=== PATIENT | male | born 1935 | race Caucasian/White ===

== ENCOUNTER 2020-07-16 09:41 | Inpatient (IN) | payer MEDICARE ==
[~2020-07-16] VITALS: Ht 167.6 cm; Wt 63.3 kg
[~2020-07-16 09:41] MED LIST: LIQUID MAGNESI400 MG PO; LISINOPRIL20 MG PO; VICODIN 500 MG-1 TAB PO; VITAMIN B1250 MCG PO
--- NOTE | 2020-07-16 09:45 | NUR ---
EKG COMPLETED AND GIVEN TO DR BOGGS. EKG MACHINE WOULD NOT TRANSMIT EKG. TOÑA VÁZQUEZ WAS LEFT A VOICEMAIL ABOUT MACHINE ISSUE
[2020-07-16 09:54] VITALS: BP 124/42
--- NOTE | 2020-07-16 10:23 | NUR ---
PT HAS X3 WRIST BANDS ON AND REFUSES TO TAKE OLD ONES OFF. ONE WRIST BAND IS FROM .
[2020-07-16 10:30] LABS: ACT PARTIAL THROMBO TIME 27.9 SECONDS (20.0-32.1)
[2020-07-16 10:37] LABS: ALBUMIN 3.9 gm/dl (3.1-4.5); ALKALINE PHOSPHATASE 64 U/L (45-117); BUN 18 mg/dl (7-24); CHLORIDE 108 mmol/L (98-107); CREATININE 0.86 mg/dL (0.70-1.30); LIPASE 130 U/L (73-393); POTASSIUM 4.1 mmol/L (3.5-5.1); SGOT/AST 13 IU/L (3-35); SGPT/ALT 11 U/L (12-78); SODIUM 140 mmol/L (136-145); TOTAL PROTEIN 6.7 gm/dL (6.4-8.2)
[2020-07-16 10:40] LABS: TROPONIN I < 0.015 ng/ml (<0.045)
[2020-07-16 10:45] LABS: BASO # 0.1 10*3/uL (0.0-0.1); BASO % 1.4 % (0.0-1.0); EOS # 0.1 10*3/uL (0.0-0.4); EOS % 2.1 % (1.0-4.0); HEMATOCRIT 36.2 % (42.0-52.0); LYMPH % 17.8 % (27.0-41.0); MEAN CELL VOLUME 89.6 fl (80.0-94.0); MEAN CORPUSCULAR HGB CONC 32.3 g/dl (33.0-37.0); MEAN PLATELET VOLUME 10.2 fl (9.6-12.3); MONO # 0.4 10*3/uL (0.1-1.0); MONO % 7.4 % (3.0-9.0); NEUT # 3.9 10*3/uL (2.3-7.9); NEUT % 69.4 % (47.0-73.0); PLATELET COUNT AUTOMATED 183 10*3/uL (130-400); RED BLOOD COUNT 4.04 10*6/uL (4.50-5.90); WHITE BLOOD COUNT 5.7 10*3/uL (4.8-10.8)
[2020-07-16 11:27] VITALS: BP 119/53; BP 130/40
[2020-07-16 12:00] VITALS: BP 123/60
--- NOTE | 2020-07-16 12:15 | NUR ---
A 84, admitted to , under the services of DURAN Acevedo DO with a diagnosis of COPD EXACERBATION. Chief complaint is COPD EXACERBATION. Patient arrived via bed from ER. Monitor applied. Initial assessment completed. Vital signs taken and recorded. DURAN ACEVEDO DO notified of admission to the unit. Orders received. See assessment for past medical history, medications and allergies. Patient and/or family oriented to unit. [facility]. Clothing/patient valuable form completed. URIEL SMITH
[2020-07-16] MEDS ORDERED: ASPIRIN ADULT L81 M2 PO (12:20)
[2020-07-16] MEDS ORDERED: VENT7GM INH (12:20)
--- NOTE | 2020-07-16 13:30 | NUR ---
SHANE CRENSHAW IN TO SEE PATIENT AND MADE AWARE THAT PATIENT TAKES NO HOME MEDS
[2020-07-16 16:00] VITALS: BP 125/60
[2020-07-16 20:00] VITALS: BP 108/68
[2020-07-17 00:06] VITALS: BP 93/68
--- NOTE | 2020-07-17 01:10 | NUR ---
PT ASLEEP IN BED. NO S/S OF DISTRESS NOTED. WILL MONITOR. CALL LIGHT IN REACH.
[2020-07-17 06:52] LABS: HEMATOCRIT 30.5 % (42.0-52.0); MEAN CORPUSCULAR HGB 29.3 pg (27.0-31.0); MEAN CORPUSCULAR HGB CONC 32.1 g/dl (33.0-37.0); MEAN PLATELET VOLUME 10.8 fl (9.6-12.3); PLATELET COUNT AUTOMATED 181 10*3/uL (130-400); RED BLOOD COUNT 3.35 10*6/uL (4.50-5.90); WHITE BLOOD COUNT 7.5 10*3/uL (4.8-10.8)
[2020-07-17 07:21] LABS: CHLORIDE 105 mmol/L (98-107); POTASSIUM 3.9 mmol/L (3.5-5.1); SODIUM 135 mmol/L (136-145)
[2020-07-17 07:36] LABS: ALBUMIN 3.3 gm/dl (3.1-4.5); ALKALINE PHOSPHATASE 55 U/L (45-117); BUN 23 mg/dl (7-24); CHOLESTEROL 131 mg/dL (<200); CREATININE 0.89 mg/dL (0.70-1.30); FREE T4 0.87 ng/dl (0.76-1.46); HDL CHOLESTEROL 53 mg/dl (40-60); LDL CHOLESTEROL 69 mg/dL (9-159); SGOT/AST 7 IU/L (3-35); SGPT/ALT 9 U/L (12-78); THYROID STIM HORMONE (HS) 0.379 uIU/ml (0.358-4.75); TOTAL PROTEIN 5.7 gm/dL (6.4-8.2); TRIGLYCERIDES 44 mg/dl (<150); VLDL CHOLESTEROL 9 mg/dL (6-40)
[2020-07-17 07:45] LABS: BURR CELLS FEW; PLATELET SUFFICIENCY NORMAL (NORMAL); TOTAL CELLS COUNTED 100 #CELLS
[2020-07-17 08:00] VITALS: BP 137/84
[2020-07-17 08:24] LABS: VITAMIN D, 25-HYDROXY 24.2 ng/mL (30-100)
--- NOTE | 2020-07-17 09:00 | NUR ---
Manager Architectural in to talk to patient. Patient states lives at home with alone. There are no steps in the home. Physician: none at present [facility]acy[facility] Home health services: none Patient's level of ADLs: MINIMAL ASSIST Patient has working utilities: all working DME: [employer] Follow-up physician's appointment after d/c: will be made by hospitalist nurse director upon discharge Does patient want to access PORTAL?: no Discharge plan discussed with patient, he states he lives at the [facility] in [place], he uses one crutch for ambulation, is independent in adls, drives, he states he doesn't have any oxygen at home, no VNA, discussed with him a short term alf for 5 days of rehab and 24 hour care prior to returning home, he declined, stated he could take care of himself at home, also discussed with him VNA and educated him on the services they provide, he also declined this, case mangement will follow for home needs. RADHA CYR
[2020-07-17 11:56] VITALS: BP 113/65
--- NOTE | 2020-07-17 12:56 | NUR ---
DR. KRUEGER'S OFFICE NOTIFIED OF CONSULT.
[2020-07-17 16:00] VITALS: BP 105/57
--- NOTE | 2020-07-17 19:30 | NUR ---
PT AWAKE IN BED. DENIES ANY NEEDS AT THIS TIME. WILL MONITOR. CALL LIGHT IN REACH.
[2020-07-17 20:00] VITALS: BP 107/52
[2020-07-18] VITALS: BP 113/66
--- NOTE | 2020-07-18 02:03 | NUR ---
PT ASLEEP IN BED. NO S/S OF DISTRESS NOTED. WILL MONITOR. CALL LIGHT IN REACH.
[2020-07-18 06:02] LABS: RETICULOCYTE % 4.1 % (0.50-2.50)
[2020-07-18 06:27] LABS: IRON 55 ug/dL (65-175); TOTAL IRON BINDING CAPACITY 257 ug/dl (250-450)
[2020-07-18 08:00] VITALS: BP 112/64
[2020-07-18 08:39] LABS: HEMATOCRIT 29.4 % (42.0-52.0); MEAN CELL VOLUME 89.9 fl (80.0-94.0); MEAN CORPUSCULAR HGB 29.7 pg (27.0-31.0); MEAN PLATELET VOLUME 10.8 fl (9.6-12.3); NUCLEATED RED BLOOD CELL 0.2 % (0.0-0.0); PLATELET COUNT AUTOMATED 191 10*3/uL (130-400); RED BLOOD COUNT 3.27 10*6/uL (4.50-5.90); WHITE BLOOD COUNT 12.5 10*3/uL (4.8-10.8)
--- NOTE | 2020-07-18 09:00 | NUR ---
case management visits with patient, discussed with him a short term jail stay for 5 days of rehab and 24 hour care, he was agreeable to this short term, given choice of facilities he chose [facility], sr. merchandise planner will make referral to [facility], patient will to complete a 3 night stay and has a covid swab, case management/sr. merchandise planner will follow
--- NOTE | 2020-07-18 10:22 | NUR ---
Patient is requesting a referral to [facility]. Contacted [facility] and faxed initial referral. Waiting on therapy evalulations and covid is pending. Waiting on review/acceptance.
--- NOTE | 2020-07-18 10:40 | NUR ---
Occupational Therapy evaluation completed on four with full evaluation to follow. Recommend occupational therapy per plan of care and SNF upon discharge. Thank you for this referral. Shea Harmon OTR/L
--- NOTE | 2020-07-18 11:08 | NUR ---
[facility] is stating patient will be accepted there and during his 14 day quarantine he will be allowed outside to smoke 3 times per day. Waiting on PT marty
[2020-07-18 11:15] LABS: BURR CELLS MODERATE; PLATELET SUFFICIENCY NORMAL (NORMAL); TOTAL CELLS COUNTED 100 #CELLS
--- NOTE | 2020-07-18 12:11 | NUR ---
PHYSICAL THERAPY Physical Therapy evaluation completed on 4th floor with full evaluation to follow. Recommend physical therapy per plan of care and SNF upon discharge. Thank you for this referral. Jose Hernadez SPT Risa Casanova PT
--- NOTE | 2020-07-18 12:30 | NUR ---
PATIENT C/O CHEST PAIN WHILE EATING, PATIENT WILL NOT STOP EATING FOR VITALS. VSS.
--- NOTE | 2020-07-18 12:48 | NUR ---
MEDICATED WITH TYLENOL PER ORDER AND REQUEST.
--- NOTE | 2020-07-18 14:00 | NUR ---
PATIENT STATED HE IS IN SEVERE PAIN HE NEEDS A PILL. SHANE NOTIFIED.
--- NOTE | 2020-07-18 14:19 | NUR ---
NITRO GIVEN PER ORDER.
--- NOTE | 2020-07-18 14:30 | NUR ---
GRETEL UNGER. SHANE HAS COME UP AND NEW ORDER FOR PROTONIX TO BE STARTED.
[2020-07-18 16:00] VITALS: BP 111/79
[2020-07-18 20:00] VITALS: BP 115/55
--- NOTE | 2020-07-18 20:00 | NUR ---
PATIENT VOICES NO COMPLAINTS AT THIS TIME. RESTING IN BED. RESPIRATIONS EASY, NON LABORED. VSS. BED IN LOWEST POSITION, CALL LIGHT WITHIN REACH. WILL CONTINUE TO MONITOR.
[2020-07-19] VITALS: BP 129/59
--- NOTE | 2020-07-19 04:00 | NUR ---
PATIENT SLEEPING, NO SIGNS OF DISTRESS. RESPIRATIONS EASY, NON LABORED. WILL CONTINUE TO MONITOR.
--- NOTE | 2020-07-19 07:34 | NUR ---
PT WORKING WITH PHYSICAL THERAPY AND AMBULATING THROUGHOUT ROOM WITH THEIR ASSISTANCE AT THIS TIME.
--- NOTE | 2020-07-19 07:40 | NUR ---
PHYSICAL THERAPY Patient seen this am 1;1 for therapy visit and was restng supine in bed upon therapist arrival. Patient identified by name / and recorded resting SpO2 97%, HR 98 bpm prior to transfering supine to sit EOB with MIN A. Patient needed a minute or so to collect himself, then completed sit to stand transfer, CGA x 1 with use of wh walker standing support. Patient was very talkative and needed v/c to improve focus on task in completing all treatment this session. Patient ambulated CGA, wh walker, 20'x 1 to bathroom then additional 50'x 2, demonstrating "slouched" posture, decreased stride and cautious step sequence during all 90/180 turns. Patient also able to take 3-4 backward steps without LOB and returned to EOB sit with mild fatigue. Patient recorded SpO2 97%, HR 81 bpm following gait ex and remained EOB sit as his Nurse arrived. Will continue per POC as tolerated, total treatment time 18 minutes. Keon Mccarthy, PULP BEATER
--- NOTE | 2020-07-19 07:55 | NUR ---
OT NOTE Pt laying supine in bed with head elevated agreeable to 30 minute OT session. Identified by name and date of with no complaints. Transfer supine to EOB SBA. Pt was able to bend at waist to fix hospital socks at CGA. Sitting balance good-. Sit-stand CGA with w/w for UB support and safety. Functional mobility from EOB to Bathroom CGA with w/w. Transferring on and off commode CGA with grab bar and w/w. Clothing management and hygiene both CGA with w/w. Functional mobility from bathroom to hallway CGA with w/w for safety. Functional mobility from hallway back to EOB CGA with w/w for safety. Pt was able to tolerate approx 5 minutes of activity without fatigue. While standing EOB pts balance was challenged by weight shifting and crossing midline to reach for ADL products at CGA and w/w. Standing balance F-. Pt completed BUE exercises at EOB with towel in all planes using minimal resistance due to stiff joints X10 and HAMILTON for command follow. Throughout OT session pt required max verbal cues for slowing down during Functional mobility due to being impulsive, command follow, and attention to task. Pt was left in bed with alarm active and call light in reach. Continue d/c recommneded SNF. ZARA Schneider/TRIPP Steward/Jada
[2020-07-19 08:00] VITALS: BP 115/56
[2020-07-19 08:24] LABS: BASO % 0.1 % (0.0-1.0); HEMATOCRIT 32.7 % (42.0-52.0); LYMPH # 0.5 10*3/uL (1.3-4.4); LYMPH % 3.4 % (27.0-41.0); MEAN CELL VOLUME 90.3 fl (80.0-94.0); MEAN CORPUSCULAR HGB 29.6 pg (27.0-31.0); MEAN CORPUSCULAR HGB CONC 32.7 g/dl (33.0-37.0); MEAN PLATELET VOLUME 10.1 fl (9.6-12.3); MONO # 0.7 10*3/uL (0.1-1.0); MONO % 4.8 % (3.0-9.0); NEUT # 12.8 10*3/uL (2.3-7.9); NUCLEATED RED BLOOD CELL 0.1 % (0.0-0.0); PLATELET COUNT AUTOMATED 197 10*3/uL (130-400); RED BLOOD COUNT 3.62 10*6/uL (4.50-5.90); RED CELL DISTRI WIDTH 19.5 % (0-14.5); WHITE BLOOD COUNT 14.2 10*3/uL (4.8-10.8)
[2020-07-19 08:37] LABS: BUN 19 mg/dl (7-24); CHLORIDE 106 mmol/L (98-107); CREATININE 0.83 mg/dL (0.70-1.30); POTASSIUM 4.7 mmol/L (3.5-5.1); SODIUM 137 mmol/L (136-145)
--- NOTE | 2020-07-19 10:39 | NUR ---
PT GIVEN TYLENOL 650 PO AT THIS TIME FOR C/O BACK PAIN. WILL MONITOR FOR EFFECTIVENESS. CALL LIGHT IN REACH.
--- NOTE | 2020-07-19 11:20 | NUR ---
Faxed updated clinicals, therapy and negative covid results. Patient is accepted, 3 night stay complete. hospital exemption completed. patient can go when medically stable for discharge.
--- NOTE | 2020-07-19 11:39 | NUR ---
PT STATES THAT TYLENOL IS EFFECTIVE.
--- NOTE | 2020-07-19 11:48 | NUR ---
Patient is being discharged to [facility]. [facility] stated they will transport patient and meet at the front door lobby at 2:30 PM. Notified chief passenger ship steward/stewardess.
--- NOTE | 2020-07-19 11:57 | NUR ---
Transportation cancelled as patient is not being discharged today. Notified steward/stewardess economy class.
[2020-07-19 12:00] VITALS: BP 126/61
--- NOTE | 2020-07-19 18:00 | NUR ---
PT DENIES NEEDING ANYTHING AT THIS TIME. RESPIRATIONS EASY AND UNLABORED ON ROOM AIR. NO COMPLAINTS. NO S/S OF DISTRESS. SAFETY MEASURES IN PLACE. CALL LIGHT IN REACH.
[2020-07-19 20:00] VITALS: BP 133/72
--- NOTE | 2020-07-19 20:00 | NUR ---
PATIENT SITTING UP IN BED, EATING ICE CREAM. VOICES NO COMPLAINTS. VSS. WILL CONTINUE TO MONITOR.
[2020-07-20] VITALS: BP 117/61
[2020-07-20 01:10] VITALS: BP 121/68
--- NOTE | 2020-07-20 01:10 | NUR ---
PATIENT C/O CHEST PAIN AFTER EATING MULTIPLE CUPS OF ICECREAM. VSS. PATIENT DEMANDING A NITRO TAB. NOTIFIED RESIDENT. OKAY TO ORDER NITRO, ONE TIME ORDER.
--- NOTE | 2020-07-20 01:42 | NUR ---
WENT INTO ROOM TO MEDICATE PATIENT. PATIENT SLEEPING. WILL CONTINUE TO MONITOR.
--- NOTE | 2020-07-20 05:01 | NUR ---
PATIENT SITTING ON SIDE OF BED AWAKE. DENIES CP AT THIS TIME. NO SIGNS OF DISTRESS. WILL CONTINUE TO MONITOR.
[2020-07-20 05:47] LABS: BUN 18 mg/dl (7-24); CHLORIDE 106 mmol/L (98-107); CREATININE 0.82 mg/dL (0.70-1.30); POTASSIUM 4.5 mmol/L (3.5-5.1); SODIUM 135 mmol/L (136-145)
[2020-07-20 06:03] LABS: HEMATOCRIT 35.3 % (42.0-52.0); MEAN CELL VOLUME 90.7 fl (80.0-94.0); MEAN PLATELET VOLUME 10.5 fl (9.6-12.3); NUCLEATED RED BLOOD CELL 0.2 % (0.0-0.0); PLATELET COUNT AUTOMATED 207 10*3/uL (130-400); RED BLOOD COUNT 3.89 10*6/uL (4.50-5.90); WHITE BLOOD COUNT 14.5 10*3/uL (4.8-10.8)
--- NOTE | 2020-07-20 07:03 | NUR ---
Updated clinicals and therpay faxed to [facility] for review. Patient has been accepted, 3 night stay complete, covid negative. Patient is ok to go when medically stable for discharge.
--- NOTE | 2020-07-20 07:30 | NUR ---
TOOK OVER CARE OF PT AT THIS TIME. PT SITTING UP IN BED, WORKING WITH PHYSICAL THERAPY. NO S/S OF DISTRESS. RESPIRATIONS EASY AND UNLABORED ON ROOM AIR. ALL NEEDS MET. CALL LIGHT IN REACH.
[2020-07-20 07:36] LABS: PLATELET SUFFICIENCY NORMAL (NORMAL); TOTAL CELLS COUNTED 100 #CELLS
[2020-07-20 08:00] VITALS: BP 136/76
--- NOTE | 2020-07-20 09:00 | NUR ---
case management visits with patient, he will be discharged to [facility] for rehab, case management will follow
--- NOTE | 2020-07-20 09:02 | NUR ---
OT NOTE Pt sitting EOB upon arrival agreeable to 20 Minute OT session. Identified by name and date of with complaints of 3/10 chest pain. Pt was able to bend at waist to fix hospital socks. Sitting balance good-. Sit-stand from EOB SBA with w/w for UB support and safety. Functional mobility from EOB to bathroom CGA with w/w for safety. Transferring on and off commode CGA with grab bar and w/w. while seatd on commode O2 sats read 96% on roomair and a heart rate of 100bpm. Functional mobility from bathroom back to EOB CGA with w/w. while seated EOB pt completed BUE exercises with towel at minimal resistance in all planes X10. Throughout OT session pt required maximal verbal and tactile cues for attention to task/command follow with poor carry over. Pt left EOB with alarm active and call light in reach. Continue d/c recommended SNF. ZARA Schneider/TRIPP Steward/Jada
--- NOTE | 2020-07-20 09:10 | NUR ---
PHYSICAL THERAPY Patient seen this am 1;1 for therapy visit and was sitting up on EOB following breakfast upon therapist arrival. Patient identified by name / and reports no new c/o's. Patient was very talkative again this session, requiring v/c to focus on task to improve overall safety awareness, tranfering sit to stand, CGA. Patient ambulates with use of wh walker, CGA, 25'x 1, demonstrating bouts of impulsive behaviour by increasing gait velocity without warning and quick, jerky walker movements during 180 degree turns. Patient also demonstrated POOR slouched standing posture, needing v/c to keep his head / eyes up during gait ex. Patient returned to EOB sit, stating he did not feel up to walking any further this session and remained EOB sit as his Nurse arrived for visit, with bed alarm activated for safety. Will continue per POC as tolerated, total treatment time 17 minutes. tessie Mccarthy, MINING MACHINERY ASSEMBLER
--- NOTE | 2020-07-20 11:01 | NUR ---
SUPERVISOR POLISHING IN TO SPEAK WITH THE PATIENT ABOUT CONCERNS WITH HIS HOME SITUATION. HE STATED THAT HE RESIDES AT [facility] IN [place]. PER THIS PATIENT HE IS SUPPOSED TO MAKE A PAYMENT FOR HIS ROOM SOON AND WANTED TO NOTIFY THE [facility] OF WHAT IS HAPPENING WITH HIM. PATIENT GAVE OKAY FOR THIS SUPERVISOR POLISHING TO REACH OUT TO THE [facility] AND NOTIFY THEM OF WHAT IS HAPPENING AND TO INQUIRE ABOUT THE PAYMENT. ANTELMO CONTACTED [phone] AND ASKED THAT THE PHYSIOLOGICAL CHEMIST RETURN THIS SUPERVISOR POLISHING PHONE CALL. ANTELMO WILL FOLLOW UP.
--- NOTE | 2020-07-20 11:30 | NUR ---
RES HABILITATION ASSISTANT SPOKE WITH THE PATIENT WITH THE THE HOME SERVICE TECHNICIAN OF THE [facility] STATING HE WOULD COME DONOR RELATIONS COORDINATOR A CHECK FROM THE PATIENT. PATIENT STATED THAT HIS CHECK BOOK IN EITHER IN HIS CAR OR IN HIS ROOM AT THE [facility]. PATIENT ASKED THIS RES HABILITATION ASSISTANT TO REACH OUT TO HIS FRIEND ASHER [place] ABOUT ASSISTING HIM. RES HABILITATION ASSISTANT CONTACTED A[facility] [place] WHO STATED HE WOULD BE WILLING TO TRANPORT AT DISCHARGE.
[2020-07-20 12:00] VITALS: BP 125/69
--- NOTE | 2020-07-20 12:00 | NUR ---
PT ATB INFUSING PER ORDERS. IV SITE IS PATENT. DRESSING C/D/I. NO S/S OF DISTRESS. CALL LIGHT IN REACH.
[2020-07-20] MEDS ORDERED: PREDNISONE10 MG PO (14:38)
[2020-07-20] MEDS ORDERED: ZITHROMAX TRI-500 M1 PO (14:38)
[2020-07-20] MEDS ORDERED: VITAMIN D350 MC2 PO (14:38)
--- NOTE | 2020-07-20 14:43 | NUR ---
PROCEDURES ANALYST RECEIVED NOTICE THAT THIS PATIENTS FRIEND IS NO LONGER ABLE TO TRANSPORT HIM TO [facility]. PATIENT IS CONCERNED ABOUT MAKING A PATIENT FOR HIS ROOM PRIOR TO GOING TO [facility]. PATIENT HAS NO FUNDS ON HIM AND THEY ARE IN HIS CAR OR IN HIS ROOM AT THE [facility]. PATIENT NOW WANTS TO GO HOME VS SNF. PATIENT HAS NO FUNDS TO GET HIM HOME. ANTELMO SPOKE WITH DIRECTOR OF CASE MANAGEMENT ISIDORO Braxton. SHE GAVE THE OKAY FOR THE PATIENT TO TAKE A TAXI HOME. ANTELMO CONTACTED [facility] [phone] COST IS $24.73. ANTELMO SPOKE WITH CHUNG LEVINE AND STATED A 3:15PM MAMMA LOGIST WOULD BE OKAY. PROCEDURES ANALYST ARRANGED FOR A 3:15PM TRANSPORT AT THE FRONT DOOR. PATIENT WILL RETURN TO HIS HOME WITH [facility].
--- NOTE | 2020-07-20 14:49 | NUR ---
patient has decided he did not want to go to [facility] for rehab, he will be going home with [facility], case management notified [facility] patient is discharged today
--- NOTE | 2020-07-20 15:00 | NUR ---
Discharge instructions reviewed with patient/family. Patient receptive and verbalizes understanding. Follow-up care arranged. Written instructions given to patient/family. JULIANNA HASSAN
--- NOTE | 2020-07-20 15:15 | NUR ---
PT TAKEN DOWN TO FRONT LOBBY AT THIS TIME VIA W/C.
--- NOTE | 2020-07-23 07:45 | NUR ---
PHYSICAL THERAPY CO-SIGN I approve of the Physical Therapy notes written above. Risa Casanova PT
--- NOTE | 2020-07-23 10:00 | NUR ---
OCCUPATIONAL THERAPY CO-SIGN I approve of the Occupational Therapy notes written above. ZACK SHOOK OTR/Jada
--- NOTE | 2020-07-23 14:20 | NUR ---
ACQUISITION PROFESSIONAL RECEIVED EMAIL FROM [facility]. ACQUISITION PROFESSIONAL CONTACTED [facility]. MR. CUI STATED THIS PATIENT WAS ADMITTED TO [facility]. ACQUISITION PROFESSIONAL CONTACTED [facility]. THIS PATIENT HAS BEEN ADMITTED TO THEIR FACILITY.
== END 2020-07-20 15:15 | disposition home health service (06) | DRG 191 ==
LOC: ED 09:41 → 4E 11:28 → EDHOLD 11:28 → 4E 12:00
PROVIDERS: Emergency Medicine; Family Medicine; Internal Medicine; Registered Nurse; ADMIT Internal Medicine; ATTEND Internal Medicine
DX: J44.1 Chronic obstructive pulmonary disease with (acute) exacerbation (principal); E44.0 Moderate protein-calorie malnutrition; I10 Essential (primary) hypertension; I25.10 Atherosclerotic heart disease of native coronary artery without angina pectoris; N40.0 Benign prostatic hyperplasia without lower urinary tract symptoms; F17.210 Nicotine dependence, cigarettes, uncomplicated; R73.9 Hyperglycemia, unspecified; E55.9 Vitamin D deficiency, unspecified; Z20.828 Contact with and (suspected) exposure to other viral communicable diseases; E78.5 Hyperlipidemia, unspecified; G31.84 Mild cognitive impairment of uncertain or unknown etiology; Z82.49 Family history of ischemic heart disease and other diseases of the circulatory system; Z82.3 Family history of stroke; Z95.0 Presence of cardiac pacemaker; Z68.22 Body mass index [BMI] 22.0-22.9, adult